=== PATIENT | female | born 1985 | race American Indian/Alaskan Native ===

== ENCOUNTER 2017-11-09 20:43 | Emergency (ER) | payer SELFPAY ==
[2017-11-09 20:56] VITALS: BP 155/84
[2017-11-09 23:17] LABS: Bacteria,Urine 1+ /HPF (Negative); Bilirubin,Urine NEG (Negative); Blood,Urine NEG (Negative); Color,Urine Yellow (Yellow); Mucus,Urine 3+ /HPF; Protein,Urine <15 mg/dL mg/dL (Negative)
[2017-11-09 23:19] LABS: HCG Qualitative,Urine Negative (Negative)
== END 2017-11-09 21:50 | disposition left against medical advice (07) ==
LOC: ED 20:43
DX: R51 Headache (principal); Z53.21 Procedure and treatment not carried out due to patient leaving prior to being seen by health care provider
CPT/HCPCS: 81001; 81025